=== PATIENT | female | born 1995 | race Caucasian/White ===

== ENCOUNTER 2016-10-23 21:26 | Emergency (ER) | payer MEDICAID ==
[~2016-10-23] VITALS: Ht 154.9 cm; Wt 47.6 kg
[2016-10-23 21:32] VITALS: BP 106/47; PULSE 84; RESP 16; TEMP 97.8; O2SAT 100
[2016-10-23 21:55] LABS: BILIRUBIN,URINE NEGATIVE (NEGATIVE); BLOOD, URINE 2+ (NEGATIVE); CLARITY/URINE CLEAR (CLEAR); COLOR,URINE YELLOW (YELLOW); GLUCOSE,URINE NEGATIVE (NEGATIVE); KETONES,URINE TRACE (NEGATIVE); LEUKOCYTE ESTERASE ,URINE NEGATIVE (NEGATIVE); NITRITE, URINE NEGATIVE (NEGATIVE); PH,URINE 6.5 (5.0-8.0); PROTEIN URINE 1+ (NEGATIVE); UROBILINOGEN,URINE 0.2 (0.2-1.0)
[2016-10-23 22:09] LABS: BACTERIA,URINE RARE /HPF (None Seen); MUCUS,URINE 3+ /LPF (None Seen)
[2016-10-24 00:15] VITALS: BP 106/47; PULSE 74; RESP 16; TEMP 97.8; O2SAT 100
== END 2016-10-24 00:15 | disposition home or self-care (01) ==
LOC: SED 21:26
DX: R21 Rash and other nonspecific skin eruption (principal); L29.9 Pruritus, unspecified
CPT/HCPCS: 81000-TC; 81025; 99283